=== PATIENT | female | born 1980 | race Caucasian/White ===

== ENCOUNTER 2017-09-10 09:51 | Emergency (ER) | payer SELFPAY ==
[2017-09-10] MEDS ORDERED: NACL 0.9% 500 ML 500 ML IV ONE (10:05)
[2017-09-10] MEDS ORDERED: MOTRIN PO ONE (10:27)
[2017-09-10 10:31] LABS: Basophils % (Auto) 0.5 % (0.0-1.8); Eosinophils % (Auto) 0.1 % (0.0-4.3); Hematocrit 33.6 % (30.3-42.9); Hemoglobin 10.8 gm/dl (10.1-14.3); Mean Corpuscular HGB Conc 32 % (30-34); Mean Corpuscular Hemoglobin 28 pg (28-32); Mean Corpuscular Volume 88 fl (79-97); Platelet Count 278 K/mm3 (140-440); Red Blood Count 3.82 M/mm3 (3.65-5.03); Red Cell Distribution Width 16.5 % (13.2-15.2); White Blood Count 10.7 K/mm3 (4.5-11.0)
[2017-09-10 10:42] LABS: INR 1.13 (0.87-1.13)
[2017-09-10 10:46] LABS: Bilirubin,Urine NEG (Negative); Blood,Urine LG (Negative); Ketones,Urine NEG (Negative); Leukocyte Esterase,Urine TR (Negative); Mucus,Urine 1+ /HPF; Nitrite,Urine NEG (Negative)
[2017-09-10 11:03] LABS: Albumin 3.9 g/dL (3.9-5); Albumin/Globulin Ratio 1.1 %; Alkaline Phosphatase 65 units/L (35-129); Anion Gap 18 mmol/L; BUN/Creatinine Ratio 11; Blood Urea Nitrogen 8 mg/dL (7-17); Calcium 8.1 mg/dL (8.4-10.2); Carbon Dioxide 24 mmol/L (22-30); Chloride 94.7 mmol/L (98-107); Glucose 124 mg/dL (65-100); Potassium 3.9 mmol/L (3.6-5.0); Sodium 133 mmol/L (137-145); Total Protein 7.6 g/dL (6.3-8.2)
[2017-09-10 11:08] LABS: Alanine Aminotransferase < 5 units/L (7-56)
--- NOTE | 2017-09-10 11:16 | XRay Report ---
Single view chest: History: Possible sepsis. Findings: Normal cardiomediastinal silhouette. Trachea is midline. No consolidation, pneumothorax or pleural effusion. Impression: No acute cardiopulmonary findings.
[2017-09-10] MEDS ORDERED: ZOFRAN IV ONE (12:40)
[2017-09-10] MEDS ORDERED: SUBLIMAZE IV ONE (12:40)
[2017-09-10] MEDS ORDERED: ROCEPHIN/NS 1 GM/50 ML 1 GM/50 ML BAG IV ONE (12:41)
[2017-09-10] MEDS ORDERED: DECADRON IV ONE (12:41)
--- NOTE | 2017-09-10 12:48 | Emergency Department Report ---
HPI - General Chief Complaint: Fever Time Seen by Provider: 09/10/17 12:32 - HPI HPI: Room 19 The patient is a 37-year-old female presenting with a chief complaint of sore throat. The patient states she developed a subjective fever, sore throat and body aches 3 days ago. Patient denies rhinorrhea or cough. Patient denies sick contacts. The patient found some old penicillin and took 2 pills yesterday. Patient currently gives her pain score of 9/10 Location: Throat Duration: 3 days Quality: Pain Severity:9/10 Modifying factors: [see above] Context: [see above] Mode of transportation: [not driving] ED Past Medical Hx - Past Medical History Previous Medical History?: No - Surgical History Past Surgical History?: No - Family History Family history: no significant - Social History Smoking Status: Current Every Day Smoker (1/7 per day) Substance Use Type: None (denies illicit drug use) - Medications Home Medications: Home Medications Medication Instructions Recorded Confirmed Last Taken Type Amoxicillin/K Clav Tab [Augmentin 1 tab PO Q12HR #20 tab 09/10/17 Unknown Rx 875 mg] HYDROcodone/APAP 7.5-325 [[place]] 15 ml PO Q4HR PRN #300 ml 09/10/17 Unknown Rx Ibuprofen Oral Liqd [Motrin] 600 mg PO TID PRN #300 ml 09/10/17 Unknown Rx ED Review of Systems ROS: Stated complaint: THROAT PAIN Other details as noted in HPI Constitutional: fever (subjective) ENT: throat pain. denies: ear pain Respiratory: denies: cough Physical Exam - Physical Exam Vital Signs: Vital Signs 09/10/17 09:59 Temperature 102.5 F H Pulse Rate 136 H Respiratory 18 Rate Blood Pressure 101/73 O2 Sat by Pulse 100 Oximetry Physical Exam: GENERAL: The patient is well-developed well-nourished female lying on stretcher appearing to be in moderate discomfort. [] HEENT: Normocephalic. Atraumatic. Extraocular motions are intact. Patient has moist mucous membranes. 3+ right tonsil with exudate. Uvula midline. Left TM clear. There is no hot potato voice NECK: Supple. No meningitic signs are noted. There is adenopathy noted. CHEST/LUNGS: Clear to auscultation. There is no respiratory distress noted. HEART/CARDIOVASCULAR: Regular. There is no tachycardia. There is no gallop rub or murmur. ABDOMEN: Abdomen is soft, nontender. Patient has normal bowel sounds. There is no abdominal distention. SKIN: There is no rash. There is no edema. There is no diaphoresis. NEURO: The patient is awake, alert, and oriented. The patient is cooperative. The patient has normal speech and gait. MUSCULOSKELETAL: There is no evidence of acute injury. ED Course Vital Signs 09/10/17 09:59 Temperature 102.5 F H Pulse Rate 136 H Respiratory 18 Rate Blood Pressure 101/73 O2 Sat by Pulse 100 Oximetry ED Medical Decision Making - Lab Data Result diagrams: 09/10/17 10:16 09/10/17 10:16 Laboratory Tests 09/10/17 09/10/17 09/10/17 10:16 10:16 10:16 WBC 10.7 RBC 3.82 Hgb 10.8 Hct 33.6 MCV 88 MCH 28 MCHC 32 RDW 16.5 H Plt Count 278 Lymph % (Auto) 13.7 [place] % (Auto) 9.4 H Eos % (Auto) 0.1 Baso % (Auto) 0.5 Lymph # 1.5 [place] # 1.0 H Eos # 0.0 Baso # 0.1 Seg Neutrophils % 76.3 H Seg Neutrophils # 8.2 H PT 15.1 H INR 1.13 VBG pH Sodium 133 L Potassium 3.9 Chloride 94.7 L Carbon Dioxide 24 Anion Gap 18 BUN 8 Creatinine 0.7 Estimated GFR > 60 BUN/Creatinine Ratio 11 Glucose 124 H Lactic Acid Calcium 8.1 L Total Bilirubin 0.30 AST 11 ALT < 5 L Alkaline Phosphatase 65 Total Protein 7.6 Albumin 3.9 Albumin/Globulin Ratio 1.1 Urine Color Urine Turbidity Urine pH Ur Specific [place] Urine Protein Urine Glucose (UA) Urine Ketones Urine Blood Urine Nitrite Urine Bilirubin Urine Urobilinogen Ur Leukocyte Esterase Urine WBC (Auto) Urine RBC (Auto) U Epithel Cells (Auto) Urine Mucus Urine HCG, Qual 09/10/17 09/10/17 09/10/17 10:16 10:16 10:20 WBC RBC Hgb Hct MCV MCH MCHC RDW Plt Count Lymph % (Auto) [place] % (Auto) Eos % (Auto) Baso % (Auto) Lymph # [place] # Eos # Baso # Seg Neutrophils % Seg Neutrophils # PT INR VBG pH 7.426 H Sodium Potassium Chloride Carbon Dioxide Anion Gap BUN Creatinine Estimated GFR BUN/Creatinine Ratio Glucose Lactic Acid 1.00 Calcium Total Bilirubin AST ALT Alkaline Phosphatase Total Protein Albumin Albumin/Globulin Ratio Urine Color Yellow Urine Turbidity Clear Urine pH 5.0 Ur Specific [place] 1.026 Urine Protein 30 mg/dl Urine Glucose (UA) Neg Urine Ketones Neg Urine Blood Lg Urine Nitrite Neg Urine Bilirubin Neg Urine Urobilinogen 4.0 Ur Leukocyte Esterase Tr Urine WBC (Auto) 18.0 H Urine RBC (Auto) 140.0 U Epithel Cells (Auto) 6.0 Urine Mucus 1+ Urine HCG, Qual 09/10/17 10:20 WBC RBC Hgb Hct MCV MCH MCHC RDW Plt Count Lymph % (Auto) [place] % (Auto) Eos % (Auto) Baso % (Auto) Lymph # [place] # Eos # Baso # Seg Neutrophils % Seg Neutrophils # PT INR VBG pH Sodium Potassium Chloride Carbon Dioxide Anion Gap BUN Creatinine Estimated GFR BUN/Creatinine Ratio Glucose Lactic Acid Calcium Total Bilirubin AST ALT Alkaline Phosphatase Total Protein Albumin Albumin/Globulin Ratio Urine Color Urine Turbidity Urine pH Ur Specific [place] Urine Protein Urine Glucose (UA) Urine Ketones Urine Blood Urine Nitrite Urine Bilirubin Urine Urobilinogen Ur Leukocyte Esterase Urine WBC (Auto) Urine RBC (Auto) U Epithel Cells (Auto) Urine Mucus Urine HCG, Qual Negative - Radiology Data Radiology results: image reviewed (chest x-ray) interpreted by me: Chest x-ray-no focal infiltrates, no pneumothorax CT scan of neck with IV contrast: History: Right throat pain. Findings: There is marked enlargement noted of right palatine tonsil measuring approximately 2.5 cm in diameter. There is focal areas of low attenuation identified within the mass. No airway compromise is noted. The epiglottis appears unremarkable. Reactive right adenopathy anterior to the carotids. The submandibular salivary glands and the parotid glands appears unremarkable. The vascular structures appears normal. Impression: Acute right tonsillitis with probably developing abscess . Transcribed By: PTP Dictated By: CARISSA CHIU MD Electronically Authenticated By: CARISSA CHIU MD Signed Date/Time: 09/10/17 1322 DD/ 1318 TD/TT: 09/10/17 1322 - Medical Decision Making Discussed with patient her CT findings. Family at bedside to assist in translation. I explained that I may attempt an aspiration of the "probable abscess" seen on CT scan. Patient states she does not wish to have this procedure done at this time and would like to see if antibiotics help. Family and patient admonished to return to emergency department immediately should her symptoms worsen. Patient advised to follow-up with ENT as soon as possible. Patient and family verbalized understanding - Differential Diagnosis acute tonsillitis, peritonsillar abscess Critical care attestation.: If time is entered above; I have spent that time in minutes in the direct care of this critically ill patient, excluding procedure time. ED Disposition Clinical Impression: Acute tonsillitis Disposition: DC- TO HOME OR SELFCARE Is pt being admited?: No Does the pt Need Aspirin: No Condition: Stable Instructions: Tonsillitis (ED), Peritonsillar Abscess (ED) Additional Instructions: Return to the emergency department immediately should you develop worsening symptoms, fever, inability to tolerate food or liquid or any other concerns. Prescriptions: Amoxicillin/K Clav Tab [Augmentin 875 mg] 1 tab PO Q12HR #20 tab HYDROcodone/APAP 7.5-325 [[place]] 15 ml PO Q4HR PRN #300 ml PRN Reason: Pain Ibuprofen Oral Liqd [Motrin] 600 mg PO TID PRN #300 ml PRN Reason: Pain Referrals: EILEEN SWANSON MD [Staff Physician] - [facility] (Dr. Swanson is an ear nose and throat doctor. Please follow-up with her for further evaluation) Time of Disposition: 14:10
[2017-09-10] MEDS ORDERED: NACL ONE (12:52)
[2017-09-10] MEDS ORDERED: cefTRIAXone 1 GM in NACL 0.9% 20 ML IV ONE (13:00)
--- NOTE | 2017-09-10 13:28 | Cat Scan Report ---
CT scan of neck with IV contrast: History: Right throat pain. Findings: There is marked enlargement noted of right palatine tonsil measuring approximately 2.5 cm in diameter. There is focal areas of low attenuation identified within the mass. No airway compromise is noted. The epiglottis appears unremarkable. Reactive right adenopathy anterior to the carotids. The submandibular salivary glands and the parotid glands appears unremarkable. The vascular structures appears normal. Impression: Acute right tonsillitis with probably developing abscess .
[2017-09-10] MEDS ORDERED: NACL 0.9% 1000 ML 1,000 ML IV ONE ×2 (13:44→13:48)
[2017-09-10] MEDS ORDERED: NACL 0.9% 1000 ML 1,000 ML ONE (13:47)
[2017-09-10 14:07] VITALS: BP 93/66
== END 2017-09-10 14:43 | disposition home or self-care (01) ==
LOC: ED 09:51
DX: J03.90 Acute tonsillitis, unspecified (principal); F17.200 Nicotine dependence, unspecified, uncomplicated
CPT/HCPCS: 70491; 71010; 96365; 96375; 99285; J0696; J1100; J2405; J3010; J7030; Q9967